=== PATIENT | female | born 1990 | race Caucasian/White ===

== ENCOUNTER 2016-11-20 12:36 | Emergency (ER) | payer SELFPAY ==
[~2016-11-20] VITALS: Ht 177.8 cm; Wt 100.0 kg
[~2016-11-20 12:36] MED LIST: ALBUTEROL0.09 MG/A1 IH; ALBUTEROL0.83 MG/ML IH; ALEVE 220MG220 MG PO; AMOXICILLIN 50500 MG PO; AMOXICILLIN875 MG PO; BACTRIM DS 8001 TAB PO; CEFTIN500 MG PO; CEPHALEXIN500 M1 PO; DOXYCYCLINE 10100 MG PO; ESCITALOPRAM; FLEXERIL10 MG PO; FLEXERIL5 MG PO; IBUPROFEN200 M1 PO; LORTAB 5/500 501 TAB PO; MAGIC MOUTHWASH1 M2 PO; MOTRIN 800800 MG/TAB PO; MOTRIN100 M1 PO; NAPROSYN500 MG PO; NO HOME MEDICATIONS; NORCO 325 MG-51 TAB PO; NYSTATIN 100MU/ML PO; OCEAN 45 ML45 ML NS; PEPCID 20MG TAB20 MG PO; PHENERGAN 25 TA25 MG PO; PHENERGAN25 MG RC; PREDNISONE10 MG PO; PREDNISONE20 MG PO; PRILOSEC 20MG20 MG PO; PRILOSEC10 MG PO; PRILOSEC2.5 MG/Pac PO; PRILOSEC20 MG PO; PROMETHAZINE12.5 M5 PO; PROVENTIL0.09 MG/A1 IH; PYRIDIUM200 M1 PO; REGLAN 10MG10 MG/TAB PO; TRIAMCINOLONE A15 GM TP; ULTRAM50 MG PO; VENTOLIN0.09 MG IH; VICODIN 5/5001 UDTAB PO; ZOFRAN 4MG T4 MG/TAB PO; [UNRECOGNIZED DRUG - CODE] PO
[2016-11-20 12:40] VITALS: BP 133/86; TEMP 98
[2016-11-20] MEDS ORDERED: PHENERGAN 25 TA25 MG PO (13:25)
[2016-11-20 14:15] VITALS: PULSE 81
== END 2016-11-20 14:16 | disposition home or self-care (01) ==
LOC: COL.ER 12:36
DX: R11.10 Vomiting, unspecified (principal); R19.7 Diarrhea, unspecified; F17.210 Nicotine dependence, cigarettes, uncomplicated; F15.10 Other stimulant abuse, uncomplicated
CPT/HCPCS: J2405; J2550

== ENCOUNTER 2018-05-31 20:56 | Emergency (ER) | payer OTHER ==
[~2018-05-31] VITALS: Ht 177.8 cm; Wt 106.8 kg
[2018-05-31 21:05] VITALS: TEMP 99.6
[2018-06-01] MEDS ORDERED: DOXYCYCLINE 10100 MG PO ×2 (00:38)
[2018-06-01] MEDS ORDERED: ZITHROMAX Z PA250 MG PO (01:22)
[2018-06-01 02:02] VITALS: BP 117/74; PULSE 88
== END 2018-06-01 02:05 | disposition home or self-care (01) ==
LOC: COL.ER 20:56
DX: J20.9 Acute bronchitis, unspecified (principal); F17.210 Nicotine dependence, cigarettes, uncomplicated; F12.90 Cannabis use, unspecified, uncomplicated

== ENCOUNTER 2018-09-09 18:26 | Emergency (ER) | payer OTHER ==
[~2018-09-09] VITALS: Ht 177.8 cm; Wt 104.5 kg
[~2018-09-09 18:26] MED LIST changes: +ZITHROMAX Z PA250 MG PO
[2018-09-09 18:32] VITALS: BP 163/97; TEMP 98.3
[2018-09-09 19:36] LABS: BASO # 0.1 (0.0-0.2); BASO % 0.5 % (0.0-2.0); EOS # 0.5 (0.0-0.7); EOS % 3.8 % (0-4.0); GRAN # 8.2 (1.4-6.5); HEMATOCRIT 41.9 % (37.0-47.0); HEMOGLOBIN 13.6 g/dl (12.5-16.0); LYMPH # 3.1 (1.2-3.4); MEAN CELL VOLUME 86 fl (80.0-100.0); MEAN CORPUSCULAR HEMOGLOBIN 28 pg (27.0-31.0); MEAN CORPUSCULAR HGB CONC 33 g/dl (33.0-37.0); MEAN PLATELET VOLUME 9.9 fl (7.4-10.4); MONO # 0.9 (0.1-0.6); MONO % 7.4 % (1.7-9.3); PLATELET COUNT 406 K/mm3 (130-400); RED BLOOD COUNT 4.88 M/mm3 (4.10-5.30)
[2018-09-09 19:46] LABS: ALBUMIN 4.4 gm/dL (3.5-5.0); BILIRUBIN,TOTAL 0.2 mg/dL (0.0-1.0); C-REACTIVE PROTEIN 1.5 mg/dL (0.0-0.9); CALCIUM 9.5 mg/dL (8.4-10.2); CREATININE, serum 0.59 (0.52-1.25); POTASSIUM 3.9 mmol/L (3.4-5.0)
[2018-09-09 19:51] LABS: COLLECTION METHOD CLEAN CATCH
[2018-09-09 19:58] LABS: MUCOUS Present /lpf; PH 5 (5-8); URINE APPEARANCE Clear; URINE BACTERIA None Seen /hpf; URINE BILIRUBIN Negative (NEGATIVE); URINE BLOOD Negative (NEGATIVE); URINE COLOR Yellow; URINE GLUCOSE Negative (NEGATIVE); URINE KETONE Negative (NEGATIVE); URINE LEUKOCYTE ESTERASE Negative (NEGATIVE); URINE NITRATE Negative (NEGATIVE); URINE PROTEIN(semi-quant) Negative (NEGATIVE); URINE RBC 0-2 /hpf; URINE UROBILINOGEN Negative (NEGATIVE)
[2018-09-09] MEDS ORDERED: PROTONIX 40MG T40 MG PO (21:02)
[2018-09-09 21:26] VITALS: PULSE 83
== END 2018-09-09 21:35 | disposition home or self-care (01) ==
LOC: COL.ER 18:26
PROVIDERS: Emergency Medicine
DX: R10.13 Epigastric pain (principal); R10.12 Left upper quadrant pain; F17.210 Nicotine dependence, cigarettes, uncomplicated; F12.90 Cannabis use, unspecified, uncomplicated
CPT/HCPCS: J2405; J2550; J7030; Q9967

== ENCOUNTER 2018-10-07 15:53 | Emergency (ER) | payer SELFPAY ==
[~2018-10-07] VITALS: Ht 177.8 cm; Wt 108.2 kg
[~2018-10-07 15:53] MED LIST changes: +PROTONIX 40MG T40 MG PO
[2018-10-07 16:01] VITALS: TEMP 98.5
[2018-10-07 16:48] LABS: BASO # 0.1 (0.0-0.2); BASO % 0.5 % (0.0-2.0); EOS # 0.6 (0.0-0.7); EOS % 5.1 % (0-4.0); GRAN # 7.3 (1.4-6.5); GRAN % 63.5 % (42.2-75.2); HEMATOCRIT 41.7 % (37.0-47.0); HEMOGLOBIN 13.6 g/dl (12.5-16.0); LYMPH # 2.4 (1.2-3.4); MEAN CELL VOLUME 86 fl (80.0-100.0); MEAN CORPUSCULAR HEMOGLOBIN 28 pg (27.0-31.0); MEAN CORPUSCULAR HGB CONC 33 g/dl (33.0-37.0); MEAN PLATELET VOLUME 9.6 fl (7.4-10.4); MONO # 1.1 (0.1-0.6); MONO % 9.3 % (1.7-9.3); PLATELET COUNT 387 K/mm3 (130-400); RED BLOOD COUNT 4.88 M/mm3 (4.10-5.30); REDCELL DISTRIBUTION WIDTH-CV 15.2 % (11.5-14.5)
[2018-10-07 17:04] LABS: ALBUMIN 4.1 gm/dL (3.5-5.0); BILIRUBIN,TOTAL 0.3 mg/dL (0.0-1.0); C-REACTIVE PROTEIN 1.6 mg/dL (0.0-0.9); CALCIUM 9.3 mg/dL (8.4-10.2); CREATININE, serum 0.51 (0.52-1.25); POTASSIUM 4.1 mmol/L (3.4-5.0); TOTAL PROTEIN 7.4 gm/dL (6.4-8.2)
[2018-10-07 17:04] LABS: COLLECTION METHOD CLEAN CATCH
[2018-10-07 17:14] LABS: PH 6 (5-8); SQUAMOUS EPITHELIAL 0-2 /hpf; URINE APPEARANCE Clear; URINE BACTERIA None Seen /hpf; URINE BILIRUBIN Negative (NEGATIVE); URINE BLOOD Negative (NEGATIVE); URINE COLOR Yellow; URINE GLUCOSE Negative (NEGATIVE); URINE KETONE Negative (NEGATIVE); URINE LEUKOCYTE ESTERASE Negative (NEGATIVE); URINE NITRATE Negative (NEGATIVE); URINE PROTEIN(semi-quant) Negative (NEGATIVE); URINE RBC 0-2 /hpf; URINE UROBILINOGEN Negative (NEGATIVE)
[2018-10-07] MEDS ORDERED: ZOFRAN ODT4 MG PO (17:49)
[2018-10-07 18:00] VITALS: BP 122/76; PULSE 75
== END 2018-10-07 18:00 | disposition home or self-care (01) ==
LOC: COL.ER 15:53
PROVIDERS: Physician Assistant
DX: R10.12 Left upper quadrant pain (principal)
CPT/HCPCS: J2405; J7030

== ENCOUNTER → 2018-10-14 | Outpatient (CLI) | payer SELFPAY ==
[~2018-10-14] MED LIST changes: +ZOFRAN ODT4 MG PO
[2018-10-14 11:11] LABS: HEMATOCRIT 40.6 % (37.0-47.0); HEMOGLOBIN 13.3 g/dl (12.5-16.0); MEAN CELL VOLUME 84 fl (80.0-100.0); MEAN CORPUSCULAR HEMOGLOBIN 28 pg (27.0-31.0); MEAN CORPUSCULAR HGB CONC 33 g/dl (33.0-37.0); MEAN PLATELET VOLUME 9.5 fl (7.4-10.4); PLATELET COUNT 357 K/mm3 (130-400); RED BLOOD COUNT 4.84 M/mm3 (4.10-5.30); REDCELL DISTRIBUTION WIDTH-CV 15.2 % (11.5-14.5)
[2018-10-14 11:23] LABS: ALBUMIN 4.1 gm/dL (3.5-5.0); BILIRUBIN,TOTAL 0.4 mg/dL (0.0-1.0); CALCIUM 8.9 mg/dL (8.4-10.2); CHOLESTEROL RISK RATIO 3.9; CREATININE, serum 0.5 (0.52-1.25); POTASSIUM 4.1 mmol/L (3.4-5.0); TOTAL PROTEIN 7.4 gm/dL (6.4-8.2)
[2018-10-14 11:37] LABS: HIV 1/2 Antibodies Non-Reactive; HIV-1p24 Antigen Non-Reactive
[2018-10-14 11:53] LABS: THYROID STIMULATING HORMONE 3.86 uIU/mL (0.465-4.680)
== END ==
LOC: COL.LAB 10:39
PROVIDERS: Physician Assistant
DX: Z72.89 Other problems related to lifestyle (principal); R10.9 Unspecified abdominal pain

== ENCOUNTER 2018-11-04 07:06 | Day surgery (SDC) | payer SELFPAY ==
[~2018-11-04] VITALS: Ht 177.8 cm; Wt 106.1 kg
[2018-11-04 07:43] VITALS: BP 116/89; PULSE 81; TEMP 97.8
[2018-11-04] MEDS ORDERED: CARAFATE 1GM1 G PO (07:52)
[2018-11-04 08:35] VITALS: BP 109/58; PULSE 86; TEMP 97.4
--- NOTE | 2018-11-04 08:35 | NUR ---
Patient brought back to [facility] from GI suite. Alert and oriented. Ambulated to chair without difficulty. Vital signs stable. Denies nausea with some pain to abdomen, MD aware. Patient states she would like water and jello at this time. Will continue to monitor.
[2018-11-04 08:50] VITALS: BP 111/65; PULSE 80
--- NOTE | 2018-11-04 08:50 | NUR ---
Patient tolerating food and drink without difficulty at this time. Boyfriend at bedside. Will continue to monitor.
[2018-11-04 09:05] VITALS: BP 111/54; PULSE 79
--- NOTE | 2018-11-04 09:05 | NUR ---
Patient states she would like to go home at this time. Vital signs stable. DIscharge instrcutions reviewed with patient and boyfriend. Verbalized understanding all questions answered. Patient to get dressed at this time.
--- NOTE | 2018-11-04 09:20 | NUR ---
Patient ambulated to lobby without difficulty. To be driven home by boyfrienyessica Mckeon.
== END 2018-11-04 09:20 | disposition home or self-care (01) ==
LOC: SDCO 07:06
DX: K29.00 Acute gastritis without bleeding (principal); F41.9 Anxiety disorder, unspecified; J45.909 Unspecified asthma, uncomplicated; K58.0 Irritable bowel syndrome with diarrhea; Z83.79 Family history of other diseases of the digestive system; F17.210 Nicotine dependence, cigarettes, uncomplicated
CPT/HCPCS: J2704

== ENCOUNTER 2019-02-18 13:17 | Emergency (ER) | payer SELFPAY ==
[~2019-02-18] VITALS: Ht 177.8 cm; Wt 106.8 kg
[~2019-02-18 13:17] MED LIST changes: +CARAFATE 1GM1 G PO
[2019-02-18 13:27] VITALS: TEMP 98.1
[2019-02-18] MEDS ORDERED: PREDNISONE20 MG PO (14:33)
[2019-02-18] MEDS ORDERED: AMITRIPTYLINE H25 M1 PO (14:36)
[2019-02-18 14:57] VITALS: BP 138/86; PULSE 98
== END 2019-02-18 14:53 | disposition home or self-care (01) ==
LOC: COL.ER 13:17
DX: J11.1 Influenza due to unidentified influenza virus with other respiratory manifestations (principal); J98.01 Acute bronchospasm; G43.909 Migraine, unspecified, not intractable, without status migrainosus; F17.210 Nicotine dependence, cigarettes, uncomplicated; Z88.5 Allergy status to narcotic agent

== ENCOUNTER 2020-04-08 12:18 | Emergency (ER) | payer SELFPAY ==
[~2020-04-08] VITALS: Ht 177.8 cm; Wt 109.1 kg
[~2020-04-08 12:18] MED LIST changes: +AMITRIPTYLINE H25 M1 PO; +AMITRIPTYLINE H50 M1 PO
[2020-04-08 12:31] VITALS: BP 121/86; PULSE 75; TEMP 97.5
== END 2020-04-08 14:21 | disposition home or self-care (01) ==
LOC: COL.ER 12:18
DX: S62.654A Nondisplaced fracture of middle phalanx of right ring finger, initial encounter for closed fracture (principal); F17.210 Nicotine dependence, cigarettes, uncomplicated; Z88.6 Allergy status to analgesic agent; X50.0XXA Overexertion from strenuous movement or load, initial encounter

== ENCOUNTER 2020-04-12 12:48 | Emergency (ER) | payer SELFPAY ==
[~2020-04-12] VITALS: Ht 177.8 cm; Wt 110.9 kg
[2020-04-12 12:55] VITALS: TEMP 97.3
[2020-04-12] MEDS ORDERED: PROVENTIL0.09 MG/A1 IH (12:58)
[2020-04-12] MEDS ORDERED: PREDNISONE20 MG PO (13:26)
[2020-04-12 14:35] VITALS: BP 128/79; PULSE 85
== END 2020-04-12 14:36 | disposition home or self-care (01) ==
LOC: COL.ER 12:48
DX: B34.9 Viral infection, unspecified (principal); J45.901 Unspecified asthma with (acute) exacerbation; F17.210 Nicotine dependence, cigarettes, uncomplicated; Z88.6 Allergy status to analgesic agent
CPT/HCPCS: J7512